=== PATIENT | female | born 1960 | race Two or more races ===

== ENCOUNTER 2023-02-22 17:01 | Emergency (ER) | payer MEDICAID ==
[~2023-02-22] VITALS: Ht 160 cm; Wt 97.7 kg
[2023-02-22 18:35] VITALS: BP 177/62; PULSE 86; RESP 18; TEMP 97.2; O2SAT 98
[2023-02-22] MEDS ORDERED: HYDR-4902 PO (19:25)
[2023-02-22] MEDS ORDERED: HYDROcodone-ACET 5/325MG TAB PO ONE (19:30)
== END 2023-02-22 20:05 | disposition home or self-care (01) ==
LOC: ER 17:01
DX: M25.521 Pain in right elbow (principal); M19.021 Primary osteoarthritis, right elbow; I10 Essential (primary) hypertension; E11.9 Type 2 diabetes mellitus without complications; Z88.0 Allergy status to penicillin
CPT/HCPCS: 73080